=== PATIENT | male | born 1955 | race African-American/Black ===

== ENCOUNTER 2022-02-22 13:09 | Observation (INO) | payer MEDICARE ==
[2022-02-22] MEDS ORDERED: Aspirin Chewable 81 MG TAB ONE (13:31)
[2022-02-22 13:41] LABS: #Basophils 0.1 thou/uL (0.0-0.2); #Eosinphils 0.3 thou/uL (0.0-0.7); #Lymphocytes 2.5 thou/uL (1.20-3.40); #Monocytes 0.9 thou/uL (0.11-0.59); #Neutrophils 6.4 thou/uL (1.40-6.50); %Basophils 0.7 % (0.0-1.0); %Eosinophils 2.5 % (0.0-10.0); %Lymphocytes 24.6 % (21.0-51.0); %Monocytes 8.5 % (0.0-10.0); %Neutrophils 63.8 % (42.0-75.0); Hemoglobin 11.5 g/dL (14.0-18.0); Mean Corpuscular HGB CONC 33.2 g/dL (32.0-36.0); Mean Corpuscular Hemoglobin 33.4 pg (27.0-31.0); RBC Distribution Width 12.6 % (11.5-14.5); Red Blood Cell (RBC) Count 3.43 mill/uL (4.70-6.10)
[2022-02-22 13:53] LABS: MDiff Complete? YES; Macrocytosis SLIGHT = 6-15 cells (100X) (0-5/hpf); Mean Platelet Volume 9.3 fL (7.4-10.4); Platelet Count 117 thou/uL (130-400); Platelet Morphology Comment Appears Decreased; Polychromasia SLIGHT = 2-3 cells (100X) (0-2/hpf)
[2022-02-22] MEDS ORDERED: Nitroglycerin 2% Ointment 1 INCH/1 GM Packet ONE (14:04)
[2022-02-22 14:13] LABS: ALT (SGPT) 26 U/L (8-55); AST (SGOT) 41 U/L (5-34); Albumin 3.9 g/dL (3.4-4.8); Alkaline Phosphatase 104 U/L (40-110); Anion Gap 14 mmol/L (10-20); BUN (Urea Nitrogen) 22 mg/dL (8.4-25.7); Bilirubin, Total 0.6 mg/dL (0.2-1.2); Calc. Creatinine Clearance 0 mL/min (70-130); Calcium 8.9 mg/dL (7.8-10.44); Carbon Dioxide 20 mmol/L (23-31); Chloride 103 mmol/L (98-107); Globulin 3.6 g/dL (2.4-3.5); Glucose 75 mg/dL (80-115); Lipase 16 U/L (8-78); Protein, Total 7.5 g/dL (5.8-8.1); Sodium 133 mmol/L (136-145)
[2022-02-22] MEDS ORDERED: Acetaminophen 650 MG Suppository PR PRN (16:29)
[2022-02-22] MEDS ORDERED: Acetaminophen 325 MG TAB PO PRN (16:29)
[2022-02-22 19:04] VITALS: BMI 25.0
[2022-02-22] MEDS: Nitroglycerin 2% Ointment 1 INCH/1 GM Packet TOP SCH (21:05)
[2022-02-23] MEDS: Nitroglycerin 2% Ointment 1 INCH/1 GM Packet TOP SCH (05:05)
[2022-02-23 05:32] LABS: #Eosinphils 0.1 thou/uL (0.0-0.7); #Lymphocytes 2.3 thou/uL (1.20-3.40); #Monocytes 0.9 thou/uL (0.11-0.59); #Neutrophils 5.3 thou/uL (1.40-6.50); %Basophils 0.4 % (0.0-1.0); %Eosinophils 1.5 % (0.0-10.0); %Monocytes 10.7 % (0.0-10.0); %Neutrophils 61.4 % (42.0-75.0); Hemoglobin 10.6 g/dL (14.0-18.0); Mean Corpuscular HGB CONC 34.4 g/dL (32.0-36.0); Mean Corpuscular Hemoglobin 34.2 pg (27.0-31.0); Mean Corpuscular Volume 99.3 fL (78.0-98.0); Mean Platelet Volume 9.1 fL (7.4-10.4); Platelet Count 105 thou/uL (130-400); RBC Distribution Width 12.5 % (11.5-14.5); Red Blood Cell (RBC) Count 3.09 mill/uL (4.70-6.10); White Blood Cell (WBC) Count 8.7 thou/uL (4.8-10.8)
[2022-02-23 05:55] LABS: Anion Gap 11 mmol/L (10-20); BUN (Urea Nitrogen) 19 mg/dL (8.4-25.7); Calc. Creatinine Clearance 65 mL/min (70-130); Calcium 8.6 mg/dL (7.8-10.44); Carbon Dioxide 21 mmol/L (23-31); Cardiac Risk 2.7 (Less than 4.5); Chloride 105 mmol/L (98-107); Cholesterol 95 mg/dl (< 200 Desired); Glucose 166 mg/dL (80-115); HDL Cholesterol 35 mg/dL (>60 Neg Risk); LDL Cholesterol, Calculated 47 mg/dL; Sodium 133 mmol/L (136-145); Triglycerides 65 mg/dL (Less than 150)
[2022-02-23] MEDS ORDERED: Aspirin Chewable 81 MG TAB PO SCH (09:00)
[2022-02-23 09:03] VITALS: BP 144/66; TEMP 98
[2022-02-23 09:50] LABS: Iron 107 ug/dL (65-175); Iron Binding Capacity, Total 301 mcg/dL (261-462)
[2022-02-23 10:13] LABS: Ferritin 104.86 ng/mL (22-322)
== END 2022-02-23 11:50 | disposition home or self-care (01) ==
LOC: ERS 13:09 → 2SW 14:57
PROVIDERS: ADMIT Student in an Organized Health Care Education/Training Program; ATTEND Student in an Organized Health Care Education/Training Program
DX: R07.2 Precordial pain (principal); R10.11 Right upper quadrant pain; I11.0 Hypertensive heart disease with heart failure; I50.9 Heart failure, unspecified; E78.5 Hyperlipidemia, unspecified; I25.10 Atherosclerotic heart disease of native coronary artery without angina pectoris; E11.51 Type 2 diabetes mellitus with diabetic peripheral angiopathy without gangrene; F40.240 Claustrophobia; I25.2 Old myocardial infarction; F12.10 Cannabis abuse, uncomplicated; R42 Dizziness and giddiness; I07.1 Rheumatic tricuspid insufficiency; Z79.02 Long term (current) use of antithrombotics/antiplatelets; Z79.82 Long term (current) use of aspirin; Z79.899 Other long term (current) drug therapy; Z88.8 Allergy status to other drugs, medicaments and biological substances; Z94.4 Liver transplant status; Z95.5 Presence of coronary angioplasty implant and graft
CPT/HCPCS: 36415; 36416; 71045; 80048; 80053; 80061; 82607; 82728; 82746; 83540; 83550; 83690; 84484; 85025; 93005; 93306; G0378

== ENCOUNTER 2022-04-04 10:48 | Emergency (ER) | payer MEDICARE | END 2022-04-04 12:42 | disposition home or self-care (01) | LOC: ERS 10:48 | DX: M25.511 Pain in right shoulder (principal); I10 Essential (primary) hypertension; I11.0 Hypertensive heart disease with heart failure; I50.9 Heart failure, unspecified; E11.9 Type 2 diabetes mellitus without complications; E78.5 Hyperlipidemia, unspecified; J44.9 Chronic obstructive pulmonary disease, unspecified; I25.2 Old myocardial infarction; Z94.4 Liver transplant status ==

== ENCOUNTER 2022-04-11 06:46 | Emergency (ER) | payer MEDICARE ==
[2022-04-11 07:22] LABS: #Lymphocytes 0.8 thou/uL (1.20-3.40); #Monocytes 0.8 thou/uL (0.11-0.59); #Neutrophils 4.3 thou/uL (1.40-6.50); %Basophils 0.3 % (0.0-1.0); %Eosinophils 0.6 % (0.0-10.0); %Lymphocytes 13.4 % (21.0-51.0); %Neutrophils 71.8 % (42.0-75.0); Hemoglobin 10.8 g/dL (14.0-18.0); Mean Corpuscular HGB CONC 32.6 g/dL (32.0-36.0); Mean Corpuscular Hemoglobin 32.8 pg (27.0-31.0); Mean Platelet Volume 9.2 fL (7.4-10.4); Platelet Count 86 thou/uL (130-400); RBC Distribution Width 12.1 % (11.5-14.5); Red Blood Cell (RBC) Count 3.28 mill/uL (4.70-6.10)
[2022-04-11 07:43] LABS: ALT (SGPT) 47 U/L (8-55); AST (SGOT) 60 U/L (5-34); Albumin 3.3 g/dL (3.4-4.8); Alkaline Phosphatase 104 U/L (40-110); Anion Gap 12 mmol/L (10-20); BUN (Urea Nitrogen) 21 mg/dL (8.4-25.7); Bilirubin, Total 0.5 mg/dL (0.2-1.2); Calc. Creatinine Clearance 0 mL/min (70-130); Calcium 8.7 mg/dL (7.8-10.44); Carbon Dioxide 23 mmol/L (23-31); Chloride 105 mmol/L (98-107); Estimated GFR 51; Globulin 3.2 g/dL (2.4-3.5); Glucose 115 mg/dL (80-115); Potassium 3.8 mmol/L (3.5-5.1); Protein, Total 6.5 g/dL (5.8-8.1); Sodium 136 mmol/L (136-145)
== END 2022-04-11 08:07 | disposition home or self-care (01) ==
LOC: ERS 06:46
DX: R07.2 Precordial pain (principal); I11.0 Hypertensive heart disease with heart failure; I50.9 Heart failure, unspecified; E11.9 Type 2 diabetes mellitus without complications; J44.9 Chronic obstructive pulmonary disease, unspecified; E78.5 Hyperlipidemia, unspecified; I25.2 Old myocardial infarction; Z94.4 Liver transplant status
CPT/HCPCS: 36415; 71045; 80053; 84484; 85025; 93005

== ENCOUNTER 2022-05-12 02:48 | Emergency (ER) | payer MEDICARE ==
[2022-05-12 03:28] LABS: #Lymphocytes 1.4 thou/uL (1.20-3.40); #Monocytes 0.9 thou/uL (0.11-0.59); #Neutrophils 9.7 thou/uL (1.40-6.50); %Basophils 0.3 % (0.0-1.0); %Eosinophils 0.2 % (0.0-10.0); %Lymphocytes 11.7 % (21.0-51.0); %Monocytes 7.6 % (0.0-10.0); %Neutrophils 80.3 % (42.0-75.0); Hemoglobin 12.6 g/dL (14.0-18.0); Mean Corpuscular HGB CONC 33.4 g/dL (32.0-36.0); Mean Corpuscular Hemoglobin 32.7 pg (27.0-31.0); Mean Corpuscular Volume 97.9 fL (78.0-98.0); Mean Platelet Volume 9.4 fL (7.4-10.4); Platelet Count 134 thou/uL (130-400); RBC Distribution Width 12.4 % (11.5-14.5); Red Blood Cell (RBC) Count 3.86 mill/uL (4.70-6.10); White Blood Cell (WBC) Count 12.1 thou/uL (4.8-10.8)
[2022-05-12 03:52] LABS: ALT (SGPT) 36 U/L (8-55); AST (SGOT) 41 U/L (5-34); Albumin 3.8 g/dL (3.4-4.8); Alkaline Phosphatase 136 U/L (40-110); Anion Gap 15 mmol/L (10-20); BUN (Urea Nitrogen) 20 mg/dL (8.4-25.7); Calc. Creatinine Clearance 0 mL/min (70-130); Calcium 9.7 mg/dL (7.8-10.44); Carbon Dioxide 22 mmol/L (23-31); Chloride 102 mmol/L (98-107); Estimated GFR 70; Glucose 179 mg/dL (80-115); Lipase 39 U/L (8-78); Potassium 4.1 mmol/L (3.5-5.1); Protein, Total 7.8 g/dL (5.8-8.1); Sodium 135 mmol/L (136-145)
[2022-05-12] MEDS ORDERED: Ondansetron PF 4 MG/2 ML Vial ONE (04:33)
[2022-05-12 05:02] LABS: Bacteria/HPF None Seen HPF (None Seen); Bilirubin Negative (Negative); Blood, Urine Negative (Negative); Clarity Clear (Clear); Glucose, Urine (Dipstick) Normal (Negative); Ketone, Urine 20 mg/dL (Negative); Leukocyte Negative Leu/uL (Negative); Nitrite Negative (Negative); Protein, Urine (Dipstick) 100 mg/dL (Neg-Trace); Specific Gravity, Urine 1.019 (1.002-1.036); Squamous Epithelial None Seen HPF (0-3); Urobilinogen Normal mg/dL (Less than 2); WBC/HPF 0-3 HPF (0-3); pH, Urine 6.5 (5.0-9.0)
[2022-05-12 05:03] LABS: Sperm/HPF 2+ HPF (None Seen)
[2022-05-12 06:58] LABS: SARS-CoV-2 NAA Rapid Test Not Detected (NotDetected)
[2022-05-12] MEDS ORDERED: Iopamidol-370 76% 500 ML 1 ML ONE (09:06)
== END 2022-05-12 08:28 | disposition home or self-care (01) ==
LOC: ERS 02:48
DX: K29.00 Acute gastritis without bleeding (principal); Z20.822 Contact with and (suspected) exposure to COVID-19; I11.0 Hypertensive heart disease with heart failure; I50.9 Heart failure, unspecified; E11.9 Type 2 diabetes mellitus without complications; E78.5 Hyperlipidemia, unspecified; J44.9 Chronic obstructive pulmonary disease, unspecified
CPT/HCPCS: 0240U; 74177; 80053; 83690; 85025; 36415; 81003; 81015; 96361; 96374; J2405; Q9967

== ENCOUNTER 2022-07-10 03:17 | Inpatient (IN) | payer MEDICARE ==
[2022-07-10] MEDS ORDERED: Dextrose 10% in Water 1,000 ML IV SCH (04:15)
[2022-07-10 04:55] LABS: ALT (SGPT) 23 U/L (8-55); AST (SGOT) 34 U/L (5-34); Albumin 3.7 g/dL (3.4-4.8); Alkaline Phosphatase 104 U/L (40-110); Anion Gap 10 mmol/L (10-20); BUN (Urea Nitrogen) 27 mg/dL (8.4-25.7); Bilirubin, Total 0.3 mg/dL (0.2-1.2); Calc. Creatinine Clearance 0 mL/min (70-130); Carbon Dioxide 24 mmol/L (23-31); Chloride 105 mmol/L (98-107); Estimated GFR 59; Globulin 3.6 g/dL (2.4-3.5); Glucose 90 mg/dL (80-115); Potassium 3.3 mmol/L (3.5-5.1); Protein, Total 7.3 g/dL (5.8-8.1); Sodium 136 mmol/L (136-145)
[2022-07-10 04:58] LABS: Hemoglobin 11.7 g/dL (14.0-18.0); Mean Corpuscular HGB CONC 32.5 g/dL (32.0-36.0); Mean Corpuscular Hemoglobin 32.6 pg (27.0-31.0); RBC Distribution Width 12.3 % (11.5-14.5); Red Blood Cell (RBC) Count 3.58 mill/uL (4.70-6.10); White Blood Cell (WBC) Count 7.4 thou/uL (4.8-10.8)
[2022-07-10 05:37] LABS: #Basophils 0.1 thou/uL (0.0-0.2); #Eosinphils 0.1 thou/uL (0.0-0.7); #Lymphocytes 1.5 thou/uL (1.20-3.40); #Monocytes 0.7 thou/uL (0.11-0.59); #Neutrophils 5.1 thou/uL (1.40-6.50); %Basophils 0.7 % (0.0-1.0); %Lymphocytes 20.1 % (21.0-51.0); %Monocytes 8.8 % (0.0-10.0); %Neutrophils 68.5 % (42.0-75.0); Mean Platelet Volume 9.9 fL (7.4-10.4); Platelet Count 100 thou/uL (130-400); Platelet Morphology Comment Appears Decreased
[2022-07-10] MEDS ORDERED: Ondansetron PF 4 MG/2 ML Vial ONE (06:12)
[2022-07-10] MEDS ORDERED: Morphine 4 MG/ML VIAL ONE (06:12)
[2022-07-10 06:39] LABS: SARS-CoV-2 NAA Rapid Test Not Detected (NotDetected)
[2022-07-10 06:54] VITALS: BMI 25.0
[2022-07-10 07:34] LABS: Lactic Acid 1.4 mmol/L (0.5-2.2)
[2022-07-10] MEDS ORDERED: Senokot S 8.6-50 MG TAB PO PRN (07:34)
[2022-07-10] MEDS ORDERED: HYDROcodone/Acetaminophen 5/325 mg Tablet PO PRN (07:34)
[2022-07-10] MEDS ORDERED: Ondansetron PF 4 MG/2 ML Vial IVP PRN (07:34)
[2022-07-10] MEDS ORDERED: Acetaminophen 325 MG TAB PO PRN (07:34)
[2022-07-10] MEDS ORDERED: Dextrose 5% in Water 1,000 ML IV PRN (07:37)
[2022-07-10] MEDS ORDERED: Dextrose 50% Abboject 50 ML SYRINGE SLOW IVP PRN (07:37)
[2022-07-10] MEDS ORDERED: hydrALAZINE 20 MG/ML VIAL SLOW IVP PRN (07:39)
[2022-07-10] MEDS ORDERED: D5 0.9% NS w/ 20 mEq KCl 1,000 ML IV SCH (07:45)
[2022-07-10] MEDS: Enoxaparin Sodium 40 MG/0.4 ML SYRINGE SC SCH (09:08)
[2022-07-10 12:58] VITALS: BP 157/102
[2022-07-10] MEDS: HumaLOG 300 UNITS/3 ML VIAL SC PRN (17:19)
[2022-07-10] MEDS: Gabapentin 300 MG CAP PO SCH (17:19)
[2022-07-10] MEDS: Oxybutynin ER 5 MG TAB PO SCH (19:39)
[2022-07-10] MEDS: Tacrolimus 1 MG CAP PO SCH (19:39)
[2022-07-10] MEDS: Docusate 100 MG CAP PO SCH (19:39)
[2022-07-10] MEDS: Carvedilol 25 MG TAB PO SCH (19:39)
[2022-07-10] MEDS: Magnesium Oxide 400 MG TAB PO SCH (19:39)
[2022-07-11] MEDS: Gabapentin 300 MG CAP PO SCH ×2 (01:14→09:20)
[2022-07-11 04:16] LABS: Hemoglobin A1c 6.7 % (4.0-6.0)
[2022-07-11 04:21] LABS: #Eosinphils 0.1 thou/uL (0.0-0.7); #Lymphocytes 2.7 thou/uL (1.20-3.40); #Monocytes 0.9 thou/uL (0.11-0.59); #Neutrophils 5.3 thou/uL (1.40-6.50); %Eosinophils 1.1 % (0.0-10.0); %Lymphocytes 30.4 % (21.0-51.0); %Monocytes 9.5 % (0.0-10.0); Large Platelets SLIGHT; MDiff Complete? YES; Macrocytosis SLIGHT = 6-15 cells (100X) (0-5/hpf); Mean Corpuscular HGB CONC 32.6 g/dL (32.0-36.0); Mean Corpuscular Hemoglobin 32.5 pg (27.0-31.0); Mean Corpuscular Volume 99.6 fL (78.0-98.0); Mean Platelet Volume 10.4 fL (7.4-10.4); Ovalocytes SLIGHT = 2-5 cells (100X) (0-1/hpf); Platelet Count 85 thou/uL (130-400); Platelet Morphology Comment Appears Decreased; RBC Distribution Width 12.5 % (11.5-14.5); Red Blood Cell (RBC) Count 3.37 mill/uL (4.70-6.10)
[2022-07-11 04:22] LABS: Anion Gap 10 mmol/L (10-20); BUN (Urea Nitrogen) 23 mg/dL (8.4-25.7); Calc. Creatinine Clearance 61 mL/min (70-130); Calcium 8.6 mg/dL (7.8-10.44); Carbon Dioxide 25 mmol/L (23-31); Chloride 103 mmol/L (98-107); Estimated GFR 62; Glucose 168 mg/dL (80-115); Sodium 134 mmol/L (136-145)
[2022-07-11 07:26] VITALS: TEMP 98
[2022-07-11] MEDS ORDERED: Aspirin 81 mg Enteric Coated Tablet PO SCH (09:00)
[2022-07-11] MEDS ORDERED: Multivit, Therapeutic 1 TAB PO SCH (09:00)
[2022-07-11] MEDS ORDERED: Amlodipine 10 MG TAB PO SCH (09:00)
[2022-07-11] MEDS: Oxybutynin ER 5 MG TAB PO SCH (09:20)
[2022-07-11] MEDS: Magnesium Oxide 400 MG TAB PO SCH (09:20)
[2022-07-11] MEDS: Enoxaparin Sodium 40 MG/0.4 ML SYRINGE SC SCH (09:20)
[2022-07-11] MEDS: Tacrolimus 1 MG CAP PO SCH (09:20)
[2022-07-11] MEDS: Docusate 100 MG CAP PO SCH (09:20)
[2022-07-11] MEDS: Carvedilol 25 MG TAB PO SCH (09:30)
[2022-07-11] MEDS: HumaLOG 300 UNITS/3 ML VIAL SC PRN (11:43)
== END 2022-07-11 12:25 | disposition home or self-care (01) | DRG 637 ==
LOC: ERS 03:17 → IMCU/EMU 05:26
PROVIDERS: ADMIT Student in an Organized Health Care Education/Training Program; ATTEND Internal Medicine
DX: E11.649 Type 2 diabetes mellitus with hypoglycemia without coma (principal); G93.41 Metabolic encephalopathy; Z94.4 Liver transplant status; Z20.822 Contact with and (suspected) exposure to COVID-19; I11.0 Hypertensive heart disease with heart failure; E78.5 Hyperlipidemia, unspecified; F41.9 Anxiety disorder, unspecified; F32.A Depression, unspecified; F43.10 Post-traumatic stress disorder, unspecified; I50.9 Heart failure, unspecified; N17.9 Acute kidney failure, unspecified; F12.10 Cannabis abuse, uncomplicated; Z88.8 Allergy status to other drugs, medicaments and biological substances; Z79.82 Long term (current) use of aspirin; Z79.4 Long term (current) use of insulin; Z79.899 Other long term (current) drug therapy
CPT/HCPCS: 36415; 36416; 51701; 71045; 80048; 80053; 83036; 83605; 83880; 84484; 85025; 87040; 93005; 96361; 96374; 96375; J1650; J2270; J2405; J3480; J7507; U0002

== ENCOUNTER 2023-05-14 14:27 | Emergency (ER) | payer MEDICARE, OTHER | END 2023-05-14 15:29 | disposition left against medical advice (07) | LOC: ERS 14:27 | DX: Z53.21 Procedure and treatment not carried out due to patient leaving prior to being seen by health care provider (principal) | CPT/HCPCS: 36416 ==